=== PATIENT | female | born 1945 | race Caucasian/White ===

== ENCOUNTER 2018-04-25 10:30 | Outpatient (RCR) | payer MEDICARE, OTHER, SELFPAY ==
--- NOTE | 2018-03-21 15:40 | PT.OIE ---
Current Diagnoses Other specified disorders of muscle (03/21/18) Urge incontinence (03/21/18) Unspecified dyspareunia (03/21/18) Past Medical History (Last Updated 03/22/18 @ 16:16 by Evita Steel PT) Neck pain (Acute) Right wrist fracture (Acute) Left wrist fracture (Resolved) Provider Visit Care Team Role Provider Type Bina Cuellar MD Primary Care Provider Non-Staff Specialty: Medical Address: [address] [place] [address], [id number] Email: Iman Perez MD Attending Provider Physician Specialty: HAIRSPRING STAKER Address: [address] [place] [address], [id number] Email: [email or web address] Physical Therapy Initial Evaluation PT-OP-A Visit Information Start: 03/15/18 15:31 Freq: Status: Active Protocol: Document 03/21/18 13:40 LRN (Rec: 03/21/18 14:46 LRN [id number]) Out-Patient Physical Therapy Visit Information Visit Information Visit Type Initial Evaluation Visit Start Time 13:40 Visit Stop Time 14:43 Total Visit Minutes 63 Visit Number 1 Number of DRAPERY HAND Visits 0 Evaluation Information Evaluation Date 03/21/18 PT-OP-B Current Condition Start: 03/15/18 15:31 Freq: Status: Active Protocol: Document 03/21/18 13:40 LRN (Rec: 03/21/18 14:46 LRN [id number]) Current Condition History of Current Condition Onset Date 6-12 months ago, Current Complaints Urgency and PF pain. History of Current Condition Bladder urgency started ~1 yr ago, Vaginal pain with intercourse for 6 months that is worsening . Found to have a cervical cyst that Dr. Perez told her was not the problem for her pain. Was told she might have strained her muscles. She has been using Estrace off and on for 3 yrs. Working on correcting dryness issue of her vagina. She is 3 weeks into an 8 week treatment plan but is still feeling irritation/dryness, using Estrace 2x/week. She is not to have intercourse as part of the program. Pain of PF started 6 months ago. Prior Treatments and Tests Estrace Treatment Goals Patient/Caregiver Goals Pt goal is to have intercourse without pain, and not to leak urine. Prior Functional Status Baseline Function- ADL's Independent Baseline Function- Mobility Independent Current Functional Impairments (Reported) Functional Limitations- ADL's No physical limitation. She is sometimes limited in her ability to reach a bathroom without urinary leakage. 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 PT-OP-C Subjective Start: 03/15/18 15:31 Freq: Status: Active Protocol: Document 03/21/18 13:40 LRN (Rec: 03/22/18 15:39 LRN [id number]) Patient Questionnaires Pelvic Pain and Urgency/Frequency Patient Symptom Scale Pelvic Pain Score 20 OP-PT Pain Assessment Comments Pain Comments Pelvic Floor pain only with intercourse. PT-OP-I Pelvic Floor Start: 03/15/18 15:31 Freq: Status: Active Protocol: Document 03/21/18 13:40 LRN (Rec: 03/21/18 15:40 LRN [id number]) Pelvic Floor Assessment Urine Pelvic Floor Surgery No Urinary Symptoms Dysuria Urge Sensation Other Urinary Symptoms Urinary leakage 3x/month. Toilets 7-10x/day, 1x at night . Leakage Size Medium Bowel Bowel Surgery No: Takes Metamucil Bowel Symptoms Constipation Pelvic Clock Pelvic Clock 12-3 Tenderness Pelvic Clock 3-6 Hypertonic Tenderness Tightness Prolapse Cystocele Grade 2 Rectocele Grade 2 Perineal Descent Resting Present Bearing Present Contraction Ability Voluntary Contraction Moderate Manual Muscle Testing Left 3 Manual Muscle Testing Right 4 Manual Muscle Testing Anterior 0 Manual Muscle Testing Posterior 4 Muscle Endurance (Seconds) 10 Number of Quick Contractions In 10 5 Seconds Comments Pelvic Floor Comments MMT valued per digital assessment. The pt's superficial sphincter muscles were 0/10 in all positions of the PF clock. PT-OP-J Posture/Palpation/Skin Start: 03/15/18 15:31 Freq: Status: Active Protocol: Document 03/21/18 13:40 LRN (Rec: 03/22/18 15:39 LRN [id number]) Posture Evaluation Position Standing Evaluation View All positions Head/C-Spine Posture Forward Head T-Spine Posture Flattened Increased Kyphosis L-Spine Posture Decreased Lordosis Shoulder Posture (L) Rounded (R) Rounded Knee Posture (L) Genu Valgus (R) Genu Valgus Ankle/Foot Posture (L) Calcaneal Eversion PT-OP-K Range of Motion Start: 03/15/18 15:31 Freq: Status: Active Protocol: Document 03/21/18 13:40 LRN (Rec: 03/22/18 15:39 LRN [id number]) Hip Goniometric Range of Motion Hip Measured in Degrees Right Passive Testing Position Supine Flexion w/Knee Flexed 130 Internal Rotation 35 External Rotation 65 Left Passive Testing Position Supine Flexion w/Knee Flexed 137 Internal Rotation 25 External Rotation 75 PT-OP-M Strength Start: 03/15/18 15:31 Freq: Status: Active Protocol: Document 03/21/18 13:40 LRN (Rec: 03/22/18 15:42 LRN [id number]) Hip Strength Hip Manual Muscle Testing Right Flexion (L2) 4 Good Abduction 3 Fair Adduction 4 Good Comments Strength 5/5 except for Flex, AB, AD above. Left Flexion (L2) 4 Good Comments Generally 5/5 except for Flexion above. PT-OP-Q Treatments Start: 03/15/18 15:31 Freq: Status: Active Protocol: Document 03/21/18 13:40 LRN (Rec: 03/22/18 15:39 LRN [id number]) Self-Care/Home Management Treatment Education Patient Education Home Exercise Program Other Education Pt educated in Completion of Bladder Diary. Activities Self-Care/Home Management Activities Issued and reviewed HEP: Kegels (Quick Flicks and Long holds), Deep breathing, & LE Roll in/outs. PT-OP-T Assessment and Plan Start: 03/15/18 15:31 Freq: Status: Active Protocol: Document 03/21/18 13:40 LRN (Rec: 03/21/18 14:46 LRN [id number]) Physical Therapy Assessment Rehab Potential Rehabilitation Potential Excellent Evaluation Complexity Number of Personal Factors/Comorbidities 1-2 Number of Body Systems Impaired 3 Clinical Presentation at Evaluation Evolving Impairments Impairments Activity Tolerance Pain Posture ROM Soft Tissue Mobility Strength Other Concerns Barriers to Rehabilitation In current treatment for vaginal dryness and is not to participate with intercourse during the treatment period. Goals Three Impairment Urinary Leakage 3x/month Short Term Goal (STG) Pt will be educated and able to delay voiding to prevent urinary leakage. STG Duration 04/04/18 Senior Care Goal (LTG) Pt will be educated in self care techniques and will be able to identify behavioral changes to eliminate feelings of urinary urgency. LTG Duration 05/30/18 Two Impairment PF pain with intercourse. Mandrel Cleaner Goal (LTG) Pt will be able to tolerate initiation of intercourse. LTG Duration 05/30/18 One Impairment Lacks appropriate HEP Senior Care Goal (LTG) Pt will be independent with a HEP. LTG Duration 05/30/18 Assessment Summary Assessment Pt presents with asymmetry of hip mobility and strength, Urinary Urgency, and PF pain that will benefit from skilled physical therapy for ROM & strengthening ex's, pt education for proper bladder care, PF strengthening, manual therapy and biofeedback training with possible use of PF E-Stim for pain management. Pt will be assessed per EMG Biofeedback at the next visit. Physical Therapy Plan Frequency and Duration Frequency of Treatment 1x/Week Plan of Care Start Date 03/21/18 Plan of Care End Date 05/30/18 Therapeutic Interventions Therapeutic Interventions Home Exercise Program Manual Therapy Neuromuscular Re-education Patient/Caregiver Education Self-Care/Home Management Soft Tissue Mobilization Therapeutic Exercises Modalities Biofeedback Electric Stimulation Next Visit Focus/Plan Next Note Type Treatment Note Next Visit Plan Review Bladder Diary and educate pt in bladder care as needed, review HEP issued, Biofeedback assessment of PF strength, E-Stim for awareness training for a proper PF contraction and work towards isolating PF contraction from substitue muscles.
--- NOTE | 2018-03-22 16:21 | PT.OPPOC ---
Current Diagnoses Other specified disorders of muscle (03/21/18) Urge incontinence (03/21/18) Unspecified dyspareunia (03/21/18) Provider Visit Care Team Role Provider Type Bina Cuellar MD Primary Care Provider Non-Staff Specialty: Medical Address: [address] [place] [address], [place], [address] Email: Iman Perez MD Attending Provider Physician Specialty: PLANT FACILITIES TECHNICIAN Address: [address] [place] [address], [address] Email: [email or web address] Plan Of Care PT-OP-T Assessment and Plan Start: 03/15/18 15:31 Freq: Status: Active Protocol: Document 03/21/18 13:40 LRN (Rec: 03/21/18 14:46 LRN [id number]) Physical Therapy Assessment Rehab Potential Rehabilitation Potential Excellent Evaluation Complexity Number of Personal Factors/Comorbidities 1-2 Number of Body Systems Impaired 3 Clinical Presentation at Evaluation Evolving Impairments Impairments Activity Tolerance Pain Posture ROM Soft Tissue Mobility Strength Other Concerns Barriers to Rehabilitation In current treatment for vaginal dryness and is not to participate with intercourse during the treatment period. Goals Three Impairment Urinary Leakage 3x/month Short Term Goal (STG) Pt will be educated and able to delay voiding to prevent urinary leakage. STG Duration 04/04/18 Supervisor Agency Appointments Goal (LTG) Pt will be educated in self care techniques and will be able to identify behavioral changes to eliminate feelings of urinary urgency. LTG Duration 05/30/18 Two Impairment PF pain with intercourse. Residential Goal (LTG) Pt will be able to tolerate initiation of intercourse. LTG Duration 05/30/18 One Impairment Lacks appropriate HEP Supervisor Agency Appointments Goal (LTG) Pt will be independent with a HEP. LTG Duration 05/30/18 Assessment Summary Assessment Pt presents with asymmetry of hip mobility and strength, Urinary Urgency, and PF pain that will benefit from skilled physical therapy for ROM & strengthening ex's, pt education for proper bladder care, PF strengthening, manual therapy and biofeedback training with possible use of PF E-Stim for pain management. Pt will be assessed per EMG Biofeedback at the next visit. Physical Therapy Plan Frequency and Duration Frequency of Treatment 1x/Week Plan of Care Start Date 03/21/18 Plan of Care End Date 05/30/18 Therapeutic Interventions Therapeutic Interventions Home Exercise Program Manual Therapy Neuromuscular Re-education Patient/Caregiver Education Self-Care/Home Management Soft Tissue Mobilization Therapeutic Exercises Modalities Biofeedback Electric Stimulation Next Visit Focus/Plan Next Note Type Treatment Note Next Visit Plan Review Bladder Diary and educate pt in bladder care as needed, review HEP issued, Biofeedback assessment of PF strength, E-Stim for awareness training for a proper PF contraction and work towards isolating PF contraction from substitute muscles. Plan of Care Dates Plan of Care Start Date 03/21/18 Plan of Care End Date 05/30/18 Please Sign and Return: I have reviewed this Plan of Care and certify that the skilled therapy services above are required to meet the patient?s needs. Physician Signature Date Printed Name and Credentials Clinical Instructor Signature Printed Name and Credentials
--- NOTE | 2018-04-05 13:12 | PT.OTN ---
Current Diagnoses Other specified disorders of muscle (04/05/18) Unspecified dyspareunia (04/05/18) Physical Therapy Treatment Note PT-OP-A Visit Information Start: 03/15/18 15:31 Freq: Status: Active Protocol: Document 04/05/18 10:30 LRN (Rec: 04/05/18 12:48 LRN [id number]) Out-Patient Physical Therapy Visit Information Visit Information Visit Type Treatment Note Visit Start Time 10:30 Visit Stop Time 11:15 Total Visit Minutes 45 Visit Number 2 Number of DAIRY HAND Visits 0 Evaluation Information Evaluation Date 03/21/18 PT-OP-B Current Condition Start: 03/15/18 15:31 Freq: Status: Active Protocol: Document 03/21/18 13:40 LRN (Rec: 03/21/18 14:46 LRN [id number]) Current Condition History of Current Condition Onset Date 6-12 months ago, Current Complaints Urgency and PF pain. History of Current Condition Bladder urgency started ~1 yr ago, Vaginal pain with intercourse for 6 months that is worsening . Found to have a cervical cyst that Dr. Perez told her was not the problem for her pain. Was told she might have strained her muscles. She has been using Estrace off and on for 3 yrs. Working on correcting dryness issue of her vagina. She is 3 weeks into an 8 week treatment plan but is still feeling irritation/dryness, using Estrace 2x/week. She is not to have intercourse as part of the program. Pain of PF started 6 months ago. Prior Treatments and Tests Estrace Treatment Goals Patient/Caregiver Goals Pt goal is to have intercourse without pain, and not to leak urine. Prior Functional Status Baseline Function- ADL's Independent Baseline Function- Mobility Independent Current Functional Impairments (Reported) Functional Limitations- ADL's No physical limitation. She is sometimes limited in her ability to reach a bathroom without urinary leakage. 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 PT-OP-C Subjective Start: 03/15/18 15:31 Freq: Status: Active Protocol: Document 04/05/18 10:30 LRN (Rec: 04/05/18 12:48 LRN [id number]) OP-PT Subjective Patient Comments Patient Comments States she has been doing quick contraction ex but not endurance strengthening, but her problem is not leakage but pain with intercourse and urgency with urination. She will add endurance ex to her HEP. OP-PT Pain Assessment Comments Pain Comments Pelvic Floor pain only with intercourse. PT-OP-I Pelvic Floor Start: 03/15/18 15:31 Freq: Status: Active Protocol: Document 03/21/18 13:40 LRN (Rec: 03/21/18 15:40 LRN [id number]) Pelvic Floor Assessment Urine Pelvic Floor Surgery No Urinary Symptoms Dysuria Urge Sensation Other Urinary Symptoms Urinary leakage 3x/month. Toilets 7-10x/day, 1x at night . Leakage Size Medium Bowel Bowel Surgery No: Takes Metamucil Bowel Symptoms Constipation Pelvic Clock Pelvic Clock 12-3 Tenderness Pelvic Clock 3-6 Hypertonic Tenderness Tightness Prolapse Cystocele Grade 2 Rectocele Grade 2 Perineal Descent Resting Present Bearing Present Contraction Ability Voluntary Contraction Moderate Manual Muscle Testing Left 3 Manual Muscle Testing Right 4 Manual Muscle Testing Anterior 0 Manual Muscle Testing Posterior 4 Muscle Endurance (Seconds) 10 Number of Quick Contractions In 10 5 Seconds Comments Pelvic Floor Comments MMT valued per digital assessment. The pt's superficial sphincter muscles were 0/10 in all positions of the PF clock. PT-OP-J Posture/Palpation/Skin Start: 03/15/18 15:31 Freq: Status: Active Protocol: Document 03/21/18 13:40 LRN (Rec: 03/22/18 15:39 LRN [id number]) Posture Evaluation Position Standing Evaluation View All positions Head/C-Spine Posture Forward Head T-Spine Posture Flattened Increased Kyphosis L-Spine Posture Decreased Lordosis Shoulder Posture (L) Rounded (R) Rounded Knee Posture (L) Genu Valgus (R) Genu Valgus Ankle/Foot Posture (L) Calcaneal Eversion PT-OP-K Range of Motion Start: 03/15/18 15:31 Freq: Status: Active Protocol: Document 03/21/18 13:40 LRN (Rec: 03/22/18 15:39 LRN [id number]) Hip Goniometric Range of Motion Hip Measured in Degrees Right Passive Testing Position Supine Flexion w/Knee Flexed 130 Internal Rotation 35 External Rotation 65 Left Passive Testing Position Supine Flexion w/Knee Flexed 137 Internal Rotation 25 External Rotation 75 PT-OP-M Strength Start: 03/15/18 15:31 Freq: Status: Active Protocol: Document 03/21/18 13:40 LRN (Rec: 03/22/18 15:42 LRN [id number]) Hip Strength Hip Manual Muscle Testing Right Flexion (L2) 4 Good Abduction 3 Fair Adduction 4 Good Comments Strength 5/5 except for Flex, AB, AD above. Left Flexion (L2) 4 Good Comments Generally 5/5 except for Flexion above. PT-OP-Q Treatments Start: 03/15/18 15:31 Freq: Status: Active Protocol: Document 04/05/18 10:30 LRN (Rec: 04/05/18 12:48 LRN [id number]) Therapeutic Exercises Supine Exercises Hip flexor stretch Side right Comments Pt to stretch on whatever side is most tight Lateral hip stretch Side left Piriformis stretch Supine Exercise Name Double and single leg Side bilateral Comments Primarily left Neuro Re-Education Treatment Other Activities PF contractions Details Biofeedback training for PF contractions and resting Reps/Duration 10 x 2 Comments Quick flicks and Long holds. Self-Care/Home Management Treatment Education Patient Education Home Exercise Program Other Education Reviewed and discussed proper bladder care and recommended changes for increasing water intake and voiding frequency. Activities Self-Care/Home Management Activities Issued and reviewed HEP: Piriformis & lateral hip stretch (L>R), hip flexor stretch. PT-OP-T Assessment and Plan Start: 03/15/18 15:31 Freq: Status: Active Protocol: Document 04/05/18 10:30 LRN (Rec: 04/05/18 12:48 LRN [id number]) Physical Therapy Assessment Assessment Summary Assessment Per bladder diary, pt is voiding at a fairly good frequency with appropriate urination times most of the time, but her fluid intake is 1/2 of what is appropriate and is coffee in AM and wine in PM. Per EMG biofeedback her resting tone is low and her PF contraction strength is fairly good at 10 microVolts. Her long holds show some decrease over time. Pt very receptive to proper baldder care and she appears to have a good understanding of Long holds and Quick Flick contraction ex's. She has a good understanding of her hip mobility HEP. Further manual therapy to assess/stretch internally 3-6 O'Cloc of PF, possible internal E-stim for pain, and manual therapy (S/CS ) for L Piriformis and Sacral mobs to decreased tone at L hip. Physical Therapy Plan Frequency and Duration Frequency of Treatment 1x/Week Plan of Care Start Date 03/21/18 Plan of Care End Date 05/30/18 Next Visit Focus/Plan Next Visit Plan Review HEP of hip stretches and LE roll in/outs with progression as appropriate, possible internal E-stim for pain and training for proper PF contraction awareness, and stabilize pelvis/correct sacral positioning. Progress pt towards DC onto HEP and self care program.
--- NOTE | 2018-04-12 15:54 | PT.OTN ---
Current Diagnoses Other specified disorders of muscle (04/12/18) Unspecified dyspareunia (04/12/18) Physical Therapy Treatment Note PT-OP-A Visit Information Start: 03/15/18 15:31 Freq: Status: Active Protocol: Document 04/12/18 10:31 LRN (Rec: 04/12/18 11:21 LRN [id number]) Out-Patient Physical Therapy Visit Information Visit Information Visit Type Treatment Note Visit Start Time 10:31 Visit Stop Time 11:20 Total Visit Minutes 49 Visit Number 2 Number of SHREDDER/GRANULATOR OPERATOR Visits 0 Evaluation Information Evaluation Date 03/21/18 PT-OP-B Current Condition Start: 03/15/18 15:31 Freq: Status: Active Protocol: Document 03/21/18 13:40 LRN (Rec: 03/21/18 14:46 LRN [id number]) Current Condition History of Current Condition Onset Date 6-12 months ago, Current Complaints Urgency and PF pain. History of Current Condition Bladder urgency started ~1 yr ago, Vaginal pain with intercourse for 6 months that is worsening . Found to have a cervical cyst that Dr. Perez told her was not the problem for her pain. Was told she might have strained her muscles. She has been using Estrace off and on for 3 yrs. Working on correcting dryness issue of her vagina. She is 3 weeks into an 8 week treatment plan but is still feeling irritation/dryness, using Estrace 2x/week. She is not to have intercourse as part of the program. Pain of PF started 6 months ago. Prior Treatments and Tests Estrace Treatment Goals Patient/Caregiver Goals Pt goal is to have intercourse without pain, and not to leak urine. Prior Functional Status Baseline Function- ADL's Independent Baseline Function- Mobility Independent Current Functional Impairments (Reported) Functional Limitations- ADL's No physical limitation. She is sometimes limited in her ability to reach a bathroom without urinary leakage. 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 PT-OP-C Subjective Start: 03/15/18 15:31 Freq: Status: Active Protocol: Document 04/12/18 10:31 LRN (Rec: 04/12/18 11:21 LRN [id number]) OP-PT Subjective Patient Comments Patient Comments Have questions on the ex. Restricted from intercourse by ; therefore don't know if pain is different. Restricted 2 months from Feb 22. PT-OP-I Pelvic Floor Start: 03/15/18 15:31 Freq: Status: Active Protocol: Document 03/21/18 13:40 LRN (Rec: 03/21/18 15:40 LRN [id number]) Pelvic Floor Assessment Urine Pelvic Floor Surgery No Urinary Symptoms Dysuria Urge Sensation Other Urinary Symptoms Urinary leakage 3x/month. Toilets 7-10x/day, 1x at night . Leakage Size Medium Bowel Bowel Surgery No: Takes Metamucil Bowel Symptoms Constipation Pelvic Clock Pelvic Clock 12-3 Tenderness Pelvic Clock 3-6 Hypertonic Tenderness Tightness Prolapse Cystocele Grade 2 Rectocele Grade 2 Perineal Descent Resting Present Bearing Present Contraction Ability Voluntary Contraction Moderate Manual Muscle Testing Left 3 Manual Muscle Testing Right 4 Manual Muscle Testing Anterior 0 Manual Muscle Testing Posterior 4 Muscle Endurance (Seconds) 10 Number of Quick Contractions In 10 5 Seconds Comments Pelvic Floor Comments MMT valued per digital assessment. The pt's superficial sphincter muscles were 0/10 in all positions of the PF clock. PT-OP-J Posture/Palpation/Skin Start: 03/15/18 15:31 Freq: Status: Active Protocol: Document 03/21/18 13:40 LRN (Rec: 03/22/18 15:39 LRN [id number]) Posture Evaluation Position Standing Evaluation View All positions Head/C-Spine Posture Forward Head T-Spine Posture Flattened Increased Kyphosis L-Spine Posture Decreased Lordosis Shoulder Posture (L) Rounded (R) Rounded Knee Posture (L) Genu Valgus (R) Genu Valgus Ankle/Foot Posture (L) Calcaneal Eversion PT-OP-K Range of Motion Start: 03/15/18 15:31 Freq: Status: Active Protocol: Document 03/21/18 13:40 LRN (Rec: 03/22/18 15:39 LRN [id number]) Hip Goniometric Range of Motion Hip Measured in Degrees Right Passive Testing Position Supine Flexion w/Knee Flexed 130 Internal Rotation 35 External Rotation 65 Left Passive Testing Position Supine Flexion w/Knee Flexed 137 Internal Rotation 25 External Rotation 75 PT-OP-M Strength Start: 03/15/18 15:31 Freq: Status: Active Protocol: Document 03/21/18 13:40 LRN (Rec: 03/22/18 15:42 LRN [id number]) Hip Strength Hip Manual Muscle Testing Right Flexion (L2) 4 Good Abduction 3 Fair Adduction 4 Good Comments Strength 5/5 except for Flex, AB, AD above. Left Flexion (L2) 4 Good Comments Generally 5/5 except for Flexion above. PT-OP-Q Treatments Start: 03/15/18 15:31 Freq: Status: Active Protocol: Document 04/12/18 10:31 LRN (Rec: 04/12/18 11:21 LRN [id number]) Therapeutic Exercises Supine Exercises LE Roll in/out Supine Exercise Name With added: Deep breathing and Kegels Side bilateral Resistance Lev 2 T-Band, pillow Equipment Used T-Band, pillow. Reps/Minutes 13' Comments Progressed training to ex with T-Band and pillow Neuro Re-Education Treatment Other Activities PF contractions Details Biofeedback training for PF contractions and resting Comments Quick flicks and Long holds. Using Bar graft and ending with Fabiola visual feedback. Self-Care/Home Management Treatment Education Patient Education Home Exercise Program Activities Self-Care/Home Management Activities Issued Lev 2 T-Band with instructions on progressing PF strengthening with use of T- Band for LE roll in/outs. PT-OP-T Assessment and Plan Start: 03/15/18 15:31 Freq: Status: Active Protocol: Document 04/12/18 10:31 LRN (Rec: 04/12/18 15:38 LRN [id number]) Physical Therapy Assessment Assessment Summary Assessment Pt needed extra time for training of LE roll in/out ex and for improving pt awareness of PF contraction. Pt had no question regarding hip stretches. Next treatment needing internal assessment of tenderness. Physical Therapy Plan Frequency and Duration Frequency of Treatment 1x/Week Plan of Care Start Date 03/21/18 Plan of Care End Date 05/30/18 Next Visit Focus/Plan Next Visit Plan Manual therapy to assess/ stretch internally 3-6 O'Clock of PF, to check for possible need of internal E-stim for pain. Manual therapy (S/CS) for L Piriformis and Sacral mobs to decreased tone at L hip. Stabilize pelvis/correct sacral positioning. Progress pt towards DC onto HEP and self care program.
--- NOTE | 2018-04-18 14:01 | PT.OTN ---
Current Diagnoses Other specified disorders of muscle (04/18/18) Unspecified dyspareunia (04/18/18) Physical Therapy Treatment Note PT-OP-A Visit Information Start: 03/15/18 15:31 Freq: Status: Active Protocol: Document 04/18/18 10:33 LRN (Rec: 04/18/18 11:22 LRN [id number]) Out-Patient Physical Therapy Visit Information Visit Information Visit Type Treatment Note Visit Start Time 10:33 Visit Stop Time 11:21 Total Visit Minutes 48 Visit Number 4 Number of PHYSICAL THERAPY NURSE Visits 0 Evaluation Information Evaluation Date 03/21/18 PT-OP-B Current Condition Start: 03/15/18 15:31 Freq: Status: Active Protocol: Document 03/21/18 13:40 LRN (Rec: 03/21/18 14:46 LRN [id number]) Current Condition History of Current Condition Onset Date 6-12 months ago, Current Complaints Urgency and PF pain. History of Current Condition Bladder urgency started ~1 yr ago, Vaginal pain with intercourse for 6 months that is worsening . Found to have a cervical cyst that Dr. Perez told her was not the problem for her pain. Was told she might have strained her muscles. She has been using Estrace off and on for 3 yrs. Working on correcting dryness issue of her vagina. She is 3 weeks into an 8 week treatment plan but is still feeling irritation/dryness, using Estrace 2x/week. She is not to have intercourse as part of the program. Pain of PF started 6 months ago. Prior Treatments and Tests Estrace Treatment Goals Patient/Caregiver Goals Pt goal is to have intercourse without pain, and not to leak urine. Prior Functional Status Baseline Function- ADL's Independent Baseline Function- Mobility Independent Current Functional Impairments (Reported) Functional Limitations- ADL's No physical limitation. She is sometimes limited in her ability to reach a bathroom without urinary leakage. 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 PT-OP-C Subjective Start: 03/15/18 15:31 Freq: Status: Active Protocol: Document 04/18/18 10:33 LRN (Rec: 04/18/18 11:22 LRN [id number]) OP-PT Subjective Patient Comments Patient Comments Questions with exercises. PT-OP-I Pelvic Floor Start: 03/15/18 15:31 Freq: Status: Active Protocol: Document 04/18/18 10:33 LRN (Rec: 04/18/18 12:32 LRN [id number]) Pelvic Floor Assessment Perineal Descent Resting Present Bearing Present Comments Pelvic Floor Comments There is no tenderness of the PF and no areas of swelling. PT-OP-J Posture/Palpation/Skin Start: 03/15/18 15:31 Freq: Status: Active Protocol: Document 03/21/18 13:40 LRN (Rec: 03/22/18 15:39 LRN [id number]) Posture Evaluation Position Standing Evaluation View All positions Head/C-Spine Posture Forward Head T-Spine Posture Flattened Increased Kyphosis L-Spine Posture Decreased Lordosis Shoulder Posture (L) Rounded (R) Rounded Knee Posture (L) Genu Valgus (R) Genu Valgus Ankle/Foot Posture (L) Calcaneal Eversion PT-OP-K Range of Motion Start: 03/15/18 15:31 Freq: Status: Active Protocol: Document 03/21/18 13:40 LRN (Rec: 03/22/18 15:39 LRN [id number]) Hip Goniometric Range of Motion Hip Measured in Degrees Right Passive Testing Position Supine Flexion w/Knee Flexed 130 Internal Rotation 35 External Rotation 65 Left Passive Testing Position Supine Flexion w/Knee Flexed 137 Internal Rotation 25 External Rotation 75 PT-OP-M Strength Start: 03/15/18 15:31 Freq: Status: Active Protocol: Document 03/21/18 13:40 LRN (Rec: 03/22/18 15:42 LRN [id number]) Hip Strength Hip Manual Muscle Testing Right Flexion (L2) 4 Good Abduction 3 Fair Adduction 4 Good Comments Strength 5/5 except for Flex, AB, AD above. Left Flexion (L2) 4 Good Comments Generally 5/5 except for Flexion above. PT-OP-Q Treatments Start: 03/15/18 15:31 Freq: Status: Active Protocol: Document 04/18/18 10:33 LRN (Rec: 04/18/18 11:22 LRN [id number]) Therapeutic Exercises Supine Exercises LE Roll in/out Supine Exercise Name With Deep breathing and Kegels Side bilateral Resistance With Biofeedback Reps/Minutes 10' Comments Progressed training to ex with T-Band and pillow Neuro Re-Education Treatment Other Activities PF contractions Details Biofeedback training for PF contractions and resting Reps/Duration 15' Comments Using Bar graft and Pathway Stim for PF contraction strengthening & awareness respectively. Self-Care/Home Management Treatment Education Other Education 20' Discussing/Reviewing HEP of exercise with Kegels with deep breathing. Issued and reviewed handouts on foods to avoid and Bladder retraining. Activities Self-Care/Home Management Activities Issued & Reviewed. Self care of acidic foods and Urinary delay technique. PT-OP-T Assessment and Plan Start: 03/15/18 15:31 Freq: Status: Active Protocol: Document 04/18/18 10:33 LRN (Rec: 04/18/18 11:22 LRN [id number]) Physical Therapy Assessment Progress Towards Goals Progress Towards Goals Progressing Toward Goals Assessment Summary Assessment Pt has no areas of tenderness of the PF with internal palpation. No area of swelling noted. She now appears to have a better understanding of her HEP. Pt is planning on leaving the area; therefore final HEP of core stabilization/PF strengthening in different positions is needed for her independent progression of a PF strengthening program. It appears that her pain may be resolved. Pt limited to checking on pain with intercourse per MD instructions. Physical Therapy Plan Frequency and Duration Frequency of Treatment One more visit Plan of Care Start Date 03/21/18 Plan of Care End Date 05/30/18 Therapeutic Interventions Therapeutic Interventions Home Exercise Program Self-Care/Home Management Next Visit Focus/Plan Next Note Type Discharge Summary Next Visit Plan Manual therapy to assess PF strength. Stabilize pelvis with HEP, Check if sacral positioning needs correction. DC to HEP and self care program next visit.
--- NOTE | 2018-04-25 15:12 | PT.OTN ---
Current Diagnoses Other specified disorders of muscle (04/25/18) Unspecified dyspareunia (04/25/18) Physical Therapy Treatment Note PT-OP-A Visit Information Start: 03/15/18 15:31 Freq: Status: Active Protocol: Document 04/25/18 10:41 LRN (Rec: 04/25/18 10:43 LRN [id number]) Out-Patient Physical Therapy Visit Information Visit Information Visit Type Treatment Note Visit Start Time 10:41 Visit Stop Time 11:22 Total Visit Minutes 41 Visit Number 5 Number of SOLE TACKER Visits 0 Evaluation Information Evaluation Date 03/21/18 PT-OP-B Current Condition Start: 03/15/18 15:31 Freq: Status: Active Protocol: Document 03/21/18 13:40 LRN (Rec: 03/21/18 14:46 LRN [id number]) Current Condition History of Current Condition Onset Date 6-12 months ago, Current Complaints Urgency and PF pain. History of Current Condition Bladder urgency started ~1 yr ago, Vaginal pain with intercourse for 6 months that is worsening . Found to have a cervical cyst that Dr. Perez told her was not the problem for her pain. Was told she might have strained her muscles. She has been using Estrace off and on for 3 yrs. Working on correcting dryness issue of her vagina. She is 3 weeks into an 8 week treatment plan but is still feeling irritation/dryness, using Estrace 2x/week. She is not to have intercourse as part of the program. Pain of PF started 6 months ago. Prior Treatments and Tests Estrace Treatment Goals Patient/Caregiver Goals Pt goal is to have intercourse without pain, and not to leak urine. Prior Functional Status Baseline Function- ADL's Independent Baseline Function- Mobility Independent Current Functional Impairments (Reported) Functional Limitations- ADL's No physical limitation. She is sometimes limited in her ability to reach a bathroom without urinary leakage. 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 PT-OP-C Subjective Start: 03/15/18 15:31 Freq: Status: Active Protocol: Document 04/25/18 10:41 LRN (Rec: 04/25/18 10:43 LRN [id number]) OP-PT Subjective Patient Comments Patient Comments Having trouble coordinating the ex's. States she had intercourse and her pain was 80% improved. She reports some pain on the left side with insertion. OP-PT Pain Assessment Comments Pain Comments PF pain is 80% improved with intercourse. PT-OP-I Pelvic Floor Start: 03/15/18 15:31 Freq: Status: Active Protocol: Document 04/25/18 10:41 LRN (Rec: 04/25/18 12:45 LRN [id number]) Pelvic Floor Assessment Pelvic Clock Pelvic Clock Other Tenderness at Pelvic Clock 3-4 Tightness at Pelvic Clock 3 Prolapse Cystocele Grade 2 Rectocele Grade 2 Perineal Descent Resting Present Bearing Present Contraction Ability Manual Muscle Testing Left 2 Manual Muscle Testing Right 2 Manual Muscle Testing Anterior 2 Manual Muscle Testing Posterior 2 Muscle Endurance (Seconds) 6 Number of Quick Contractions In 10 10 Seconds Comments Pelvic Floor Comments Tenderness with MFR on the Clayton inferior Labia Majora/Minora, [place] Perineum, Bilateral inferolateral (5 O'Clock of PF clock) sphincters. Per Digital Assessment: Long Hold: 6 sec's before weakening of contraction. Good lift from posterior and R side of PF Clock. Sphincter contraction felt in PF clock except minimally at 9 O'Clock. PT-OP-J Posture/Palpation/Skin Start: 03/15/18 15:31 Freq: Status: Active Protocol: Document 03/21/18 13:40 LRN (Rec: 03/22/18 15:39 LRN [id number]) Posture Evaluation Position Standing Evaluation View All positions Head/C-Spine Posture Forward Head T-Spine Posture Flattened Increased Kyphosis L-Spine Posture Decreased Lordosis Shoulder Posture (L) Rounded (R) Rounded Knee Posture (L) Genu Valgus (R) Genu Valgus Ankle/Foot Posture (L) Calcaneal Eversion PT-OP-K Range of Motion Start: 03/15/18 15:31 Freq: Status: Active Protocol: Document 03/21/18 13:40 LRN (Rec: 03/22/18 15:39 LRN [id number]) Hip Goniometric Range of Motion Hip Measured in Degrees Right Passive Testing Position Supine Flexion w/Knee Flexed 130 Internal Rotation 35 External Rotation 65 Left Passive Testing Position Supine Flexion w/Knee Flexed 137 Internal Rotation 25 External Rotation 75 PT-OP-M Strength Start: 03/15/18 15:31 Freq: Status: Active Protocol: Document 03/21/18 13:40 LRN (Rec: 03/22/18 15:42 LRN [id number]) Hip Strength Hip Manual Muscle Testing Right Flexion (L2) 4 Good Abduction 3 Fair Adduction 4 Good Comments Strength 5/5 except for Flex, AB, AD above. Left Flexion (L2) 4 Good Comments Generally 5/5 except for Flexion above. PT-OP-Q Treatments Start: 03/15/18 15:31 Freq: Status: Active Protocol: Document 04/25/18 10:41 LRN (Rec: 04/25/18 14:51 LRN [id number]) Therapeutic Exercises Supine Exercises LE Roll in/out Supine Exercise Name With Deep breathing and Kegels Side bilateral Reps/Minutes 2' Comments Verbally reviewed Hip flexor stretch Side right Comments Reviewed: Pt to stretch on whatever side is most tight Lateral hip stretch Side left Comments Reviewed Manual Therapy Treatment Soft Tissue Mobilization Pelvic Floor Body Location Transverse Perineal ms, Inferior Labia Majora/Minora, PF Sphincters Mobilization Type Myofascial Release Sustained Pressure Trigger Point Release Intensity/Depth Superficial to moderate Body Position Supine Neuro Re-Education Treatment Other Activities PF contractions Details Contraction & Biofeedback training for PF contractions and resting Reps/Duration 20' Comments Quick Flicks and Long holds with EMG electrode and with manual palpation. Self-Care/Home Management Treatment Education Patient Education Home Exercise Program Other Education Educated pt in self PF stretching with Medium dilator issued. Activities Self-Care/Home Management Activities Issued and reviewed progressive DLS core stabilization ex's with Kegels . PT-OP-T Assessment and Plan Start: 03/15/18 15:31 Freq: Status: Active Protocol: Document 04/25/18 10:41 LRN (Rec: 04/25/18 12:45 LRN [id number]) Physical Therapy Assessment Goals Three Impairment Urinary Leakage 3x/month Short Term Goal (STG) Pt will be educated and able to delay voiding to prevent urinary leakage. STG Duration 04/04/18 GOAL MET. Skilled Nursing Goal (LTG) Pt will be educated in self care techniques and will be able to identify behavioral changes to eliminate feelings of urinary urgency. LTG Duration 05/30/18 GOAL MET Two Impairment PF pain with intercourse. Label Coder Goal (LTG) Pt will be able to tolerate initiation of intercourse. ( 11/26/18: Pt pain is 80% improved) LTG Duration 05/30/18 GOAL MET One Impairment Lacks appropriate HEP Label Coder Goal (LTG) Pt will be independent with a HEP. LTG Duration 05/30/18 GOAL MET Assessment Summary Assessment Pt has 80% improvement in PF pain with intercourse. She has some pain from scar tissue at the transverse perineal muscle and fascial tightness of the PF. The pt has been instructed in self mobilization Physical Therapy Plan Discharge Physical Therapy Discharge Reasons Goals Met Discharge Comments Pt has some pain with intercourse from fascial tightness and scar tissue. The pt is leaving the area for the winter but hopes to be able to return for a recheck when she comes back to [place]. This would be appropriate if the pt continues to have pain.
== END 2018-05-16 11:39 ==
LOC: PHYS 10:30
PROVIDERS: PCP Family Medicine; Visit Provider Specialist
DX: N94.10 Unspecified dyspareunia (principal); M62.89 Other specified disorders of muscle
CPT/HCPCS: 97110; 97112; 97140; 97162; 97535

== ENCOUNTER → 2022-09-05 11:53 | Outpatient (CLI) | payer MEDICARE, OTHER, SELFPAY ==
--- NOTE | 2022-09-05 | DI.MRI.S_ITS ---
PROCEDURE: MR WRIST RT WO CON INDICATIONS: Other articular cartilage disorders, right wrist TECHNIQUE: Noncontrast coronal proton density fast spin echo and T2 fast spin echo with fat saturation; coronal 3-D gradient echo, axial T1 spin echo and T2 fast spin echo with fat saturation, sagittal T1 spin echo through the wrist. COMPARISON: None. FINDINGS: Image quality: Excellent. Bones and cartilage: The carpal bones are normally aligned. Osteoarthritic changes are noted throughout wrist joints. No bone marrow contusions or fractures. Subcortical cystic changes are noted involving ulnar styloid with mild adjacent overlying soft tissue edema and swelling. No evidence for avascular necrosis. Overlying cartilage surfaces appear normal. Carpal ligaments: Low-grade partial-thickness tear involving volar component of scapholunate ligament is seen . No full-thickness scapholunate ligament rupture. The lunotriquetral ligaments appear intact. In the absence of intra-articular contrast, the extrinsic carpal ligaments are not well identified. On sagittal images, the pisohamate ligament appears intact. Triangular fibrocartilage complex: Signal abnormality, contour irregularity is seen in triangular fibrocartilage near its central to medial portion near its ulnar insertion. The extensor carpi ulnaris tendon appears mildly thickened with intrasubstance T2 hyperintense signal at the level of ulnar styloid tip. Tendons and soft tissues: The carpal tunnel structures appear normal, including the median nerve. The ulnar nerve appears normal within Guyon's canal. All six extensor tendon compartments demonstrate normal morphology, without pathologic tendon sheath fluid. No soft tissue ganglion cysts. IMPRESSION: 1. Mild soft tissue edema and swelling over dorsal and medial aspect of on a styloid. No fracture or dislocation. Wrist joint osteoarthritis. No evidence of avascular necrosis. 2. Suggestion of low-grade partial-thickness tear involving volar component of scapholunate ligament. No full-thickness scapholunate ligament rupture. 3. Suggestion of full-thickness perforation involving central to ulnar periphery of triangular fibrocartilage near its ulnar insertion. 4. Tendinosis involving extensor carpi ulnaris tendon at the level of ulnar styloid tip. Dictated by: Tello Smart M.D. on 09/07/2022 at 8:29 Approved by: Tello Smart M.D. on 09/07/2022 at 8:52
== END ==
PROVIDERS: PCP Family Medicine; Referring Provider Orthopaedic Surgery; Visit Provider Orthopaedic Surgery
DX: M19.031 Primary osteoarthritis, right wrist (principal); M24.131 Other articular cartilage disorders, right wrist; M79.89 Other specified soft tissue disorders
CPT/HCPCS: 73221

== ENCOUNTER → 2023-09-18 15:00 | Outpatient (CLI) | payer MEDICARE, OTHER, SELFPAY ==
--- NOTE | 2023-09-18 15:31 | DI.MRI.S_ITS ---
PROCEDURE: MR KNEE RT WO CON INDICATIONS: CHRONIC RIGHT KNEE PAIN TECHNIQUE: Noncontrast sagittal PD fast spin echo and T2 fast spin echo with fat saturation, sagittal 3-D FLASH with fat saturation; coronal T1 spin echo and PD fast spin echo with fat saturation, and axial PD fast spin echo with fat saturation through the knee. COMPARISON: None. FINDINGS: Image quality: Excellent. Anterior cruciate ligament: Intact. Posterior cruciate ligament: Intact. Medial collateral ligament: Intact. Lateral collateral ligament: Intact. Medial meniscus: Intact. Lateral meniscus: There is complex degenerative tearing and maceration of the lateral meniscus with extrusion of the meniscal body and meniscal tissue extending superiorly into the lateral femoral gutter. Medial and lateral tendons: The semimembranosus tendon insertions appear intact. Visualized portions of the pes anserinus tendons appear normal. The popliteus tendon is intact. Iliotibial band appears normal. Anterior structures: The quadriceps and patellar tendons appear intact. 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 No edema in the infrapatellar fat pad. Bones and cartilage: No bone marrow contusions or fractures. Medial femorotibial cartilage: Mild partial-thickness cartilage thinning without a focal defect. Lateral femorotibial cartilage: Full-thickness cartilage loss is seen throughout the weight-bearing portion of the lateral femorotibial compartment with subchondral edema and cystic changes and mild remodeling of the lateral tibial plateau articular surface. Patellofemoral cartilage: High-grade cartilage irregularity is seen at the lateral femoral trochlea. There is cartilage fissuring in the trochlear groove. Soft tissues: There is a small joint effusion. A small medial popliteal cyst is present. An 8 x 2 x 13 mm loose body is seen within the popliteal cyst. There is an additional 11 mm intracystic loose body more superiorly. A 7 mm loose body is seen along the posterior medial intercondylar notch. Additional loose body is seen at the lateral suprapatellar recess The musculature surrounding the knee is normal in bulk. IMPRESSION: 1. Full-thickness cartilage loss throughout the weight-bearing portion of the lateral femorotibial compartment. 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 2. Complex degenerative tearing and maceration of the lateral meniscus with extrusion of the meniscal body and meniscal tissue extending to the lateral femoral gutter. 3. Cruciate and collateral ligaments are intact. No acute trabecular bone injury. 4. Small joint effusion. Small medial popliteal cyst. Multiple filling defects are seen within the joint space and popliteal cyst that are suspicious for cartilaginous loose bodies. Approved by: Darian Apodaca M.D. on 09/20/2023 at 9:28
== END ==
LOC: MRI 15:01
PROVIDERS: PCP Family Medicine; Referring Provider Internal Medicine Rheumatology; Visit Provider Internal Medicine Rheumatology
DX: S83.271A Complex tear of lateral meniscus, current injury, right knee, initial encounter (principal); M22.41 Chondromalacia patellae, right knee; M25.461 Effusion, right knee; M71.21 Synovial cyst of popliteal space [Baker], right knee; M25.561 Pain in right knee; G89.29 Other chronic pain
CPT/HCPCS: 73721